=== PATIENT | female | born 1945 | race Caucasian/White ===

== ENCOUNTER → 2020-01-05 10:27 | Outpatient (BNVA) | payer MEDICAID, SELFPAY | PROVIDERS: PCP Nurse Practitioner Family; Referring Provider Licensed Practical Nurse; Visit Provider Psychiatry & Neurology Neurology | DX: G56.02 Carpal tunnel syndrome, left upper limb (principal); M54.2 Cervicalgia | CPT/HCPCS: 95886; 95910 ==

== ENCOUNTER 2020-01-08 12:24 | Outpatient (CLI) | payer MEDICAID, SELFPAY ==
--- NOTE | 2020-01-08 13:00 | CT_ITS ---
WS: [id number] CT CERVICAL SPINE HISTORY: Neck pain TECHNIQUE: Contiguous 2.5 mm axial imaging performed through the entire cervical spine. Sagittal and coronal reformats also performed. All CT scans at [facility] use at least one of these do se optimization techniques: automated exposure control; mA and/or kV adjustment per patient size (inc ludes targeted exams where dose is matched to clinical indication); or iterative reconstruction. DLP: 1677.79 mGycm COMPARISON: 09/27/2018 Straightening of the normal cervical lordosis. C4 anterolisthesis by 2.1 mm. Moderate to severe degen erative disc disease at C5-6 and C6-7. Endplate sclerosis with osteophytes and subchondral cystic carl nges. Craniocervical junction is intact. Lateral masses of C1 and C2 are aligned. C2-C3: Normal. C3-C4: Mild osteophytic ridging and central disc protrusion. No stenosis. C4-C5: Mild osteophytic ridging and facet arthropathy. No stenosis. C5-C6: Mild osteophytic ridging and facet arthropathy. No significant stenosis. C6-C7: Mild osteophytic ridging with slight flattening of the ventral thecal sac. No significant sten osis. C7-T1: Normal. Lung apices are clear. Heterogeneous LEFT thyroid lobe. Suspect there is probably a LEFT thyroid nodu le. CT/CT cervical spin wo con* [id number] IMPRESSION: 1. No significant central or foraminal stenosis. 2. C4 anterolisthesis by 2.1 mm. 3. Advanced degenerative disc disease at C5-6 and C6-7. 4. Similar appearance to the MRI of 11/02/2019.
--- NOTE | 2020-01-08 13:15 | CT_ITS ---
WS: [id number] CT LUMBAR SPINE, noncontrast. HISTORY: Status post lumbar fusion. TECHNIQUE: Contiguous 2.5 mm axial imaging are performed. Sagittal and coronal reformats are submitte d and reviewed. All CT scans at [facility] use at least one of these dose optimization te chniques: automated exposure control; mA and/or kV adjustment per patient size (includes targeted exa ms where dose is matched to clinical indication); or iterative reconstruction. IV contrast: None DLP: 1649.45 mGycm COMPARISON: MRI 11/02/2019 Posterior lumbar fusion at L4-5 with interbody spacer. L4 anterolisthesis by 7.2 mm. Moderate disc sp vanessa narrowing at the L4-5 level is similar to the prior study. No lucency around the hardware. Increa se in lumbar lordosis. Moderate disc space narrowing and desiccation at L2-3. Remote fracture at T12 with 3 mm retropulsion of the posterior superior endplate. L1-2: Normal. L2-3: Moderate diffuse disc bulging with ligamentum flavum hypertrophy and facet arthropathy. There i s at least mild central, subarticular recess and foraminal stenosis. L3-4: Diffuse mild annular disc bulging with ligamentum flavum and facet arthropathy. Mild central an d subarticular recess stenosis. L4-5: Large posterior laminectomy defect with resolution of central stenosis. No significant residual stenosis. Bone grafting surrounding the posterior lateral facet joints and laminectomy defects. Inco mplete fusion. L5-S1: Mild posterior disc bulging no significant stenosis. Visualized retroperitoneum is normal. CT/CT lumbar spine wo con* [id number] IMPRESSION: 1. Prior posterior lumbar fusion at L4-5 with interbody spacer. Large posterio r laminectomy defects and bone grafting are stable with no complications. 2. Stable L4 anterolisthesis by 7.2 mm. 3. Mild central, subarticular recess and foraminal stenosis at L2-3 with mild central and subarticular recess stenosis at L3-4.
== END 2020-01-08 12:25 | disposition home or self-care (01) ==
PROVIDERS: PCP Nurse Practitioner Family; Visit Provider Licensed Practical Nurse
DX: Z98.1 Arthrodesis status (principal); M48.061 Spinal stenosis, lumbar region without neurogenic claudication; M47.892 Other spondylosis, cervical region
CPT/HCPCS: 72125; 72131

== ENCOUNTER 2020-05-01 13:30 | Outpatient (CLI) | payer MEDICAID, SELFPAY ==
--- NOTE | 2020-05-01 13:30 | XR_ITS ---
WS: [id number] XR cervical spine fl/ex [id number] REASON FOR EXAM: cervical pain FINDINGS: Grade 1 spondylolisthesis C4-C5. This is not changed since previous exam of November 02. At C5-6, C6-7 there is loss of the disc space. Flexion extension views were essentially normal and th ere is mild correction of the spondylolisthesis with the flexion extension at the C4-5. XR/XR cervical spine fl/ex [id number] IMPRESSION: Motion is seen at this C4-5 level the spondylolisthesis improves returning to t he neutral position after flexion-extension.
== END 2020-05-01 13:31 | disposition home or self-care (01) ==
LOC: RADWPI 13:34
PROVIDERS: Family Provider Nurse Practitioner Family; PCP Nurse Practitioner Family; Visit Provider Specialist
DX: M43.12 Spondylolisthesis, cervical region (principal)
CPT/HCPCS: 72040

== ENCOUNTER 2020-05-27 09:12 | Day surgery (SDC) | payer MEDICAID, SELFPAY ==
[2020-05-24 07:51] VITALS: BMI 26.6
[2020-05-27 09:33] VITALS: BP 153/92; PULSE 74; RESP 18; TEMP 36.4; O2SAT 94
[2020-05-27] MEDS: sodium chloride 0.9% 1,000 ML 30 ML IV (10:05)
--- NOTE | 2020-05-27 10:40 | W.PM.OPSUD ---
Surgery/Procedure H&P Update DATE OF PROCEDURE: May 27, 2020 DATE H&P PERFORMED: 04/30/20 H&P UPDATE INFORMATION: I have reviewed H&P completed within last 30 days and H&P is in [facility] EMR on date indicated PREOP DIAGNOSIS: Carpal tunnel syndrome PRIMARY INDICATION FOR PROCEDURE: carpal tunnel syndrome PLANNED PROCEDURE: Operation Date: 05/27/20 11:00 Proposed Procedures Open Median Nerve Release at the left wrist
--- NOTE | 2020-05-27 10:57 | P.OP_ITS ---
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 Surgeon: Kory Talavera Estimated blood loss (mL): 4 Complications: None. Post-op Plan: Home per Ambulatory Surgery protocol. 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
[2020-05-27] MEDS: neomycin-poly-bacitracin oint 28 gm 1 APPLIC TOPICAL (11:29)
[2020-05-27 11:59] VITALS: BP 130/67; PULSE 80; RESP 18; TEMP 36.4; O2SAT 94
[2020-05-27 12:18] VITALS: BP 121/70; PULSE 79; RESP 18; O2SAT 92
--- NOTE | 2020-05-27 23:23 | PM.OP ---
Operative Report Date of procedure: May 27, 2020 Pre-op Diagnosis: Median nerve entrapment at the left wrist. Post-op diagnosis: same Procedure Done: Open release of the median nerve at the left wrist. Surgeon: Kory Talavera Anesthesia: MAC Estimated blood loss (mL): 4 IV fluids (mL): 500 Complications: None. Condition: stable Disposition: same day Brief History: The patient is a 75-year-old female with symptomatic, electrodiagnostically confirmed moderately-severe median nerve entrapment at the left wrist. Conservative management failed to provide adequate lasting symptom relief. After review of the diagnostic and treatment options with the risks/potential benefits/rationale for each, she requested to proceed with surgical intervention. Procedure: After routine preoperative evaluation and informed consent were obtained, the patient was taken to the Operating Room and positioned supine on the operating table. Anesthesia personnel monitored the patient, and maintained intravenous sedation. The left upper extremity was extended on an arm board. The proposed skin incision was marked with a sterile skin marker, beginning near the wrist crease and extending distally along a palmar crease to the base of the thumb. The left upper extremity was scrubbed with Betadine and prepped with DuraPrep from the fingertips to the axilla. A sterile stockinette was placed over the left upper extremity. The patient was draped with sterile towels and drapes. An opening was fashioned in the sterile stockinette over the palmar aspect of the left hand. Ioban surgical barrier was applied. The proposed incision site was infiltrated with 1% Xylocaine with Epinephrine. A skin incision was made with a sharp knife and carried down into the subcutaneous tissues. The thickened transverse carpal ligament was identified and divided over the course of the median nerve in the palm. The nerve was directly visualized as the ligament was divided. Decompression was extended distally until the palmar fat pad was encountered. Proximally, the decompression was extended above the wrist crease utilizing fine Metzenbaum scissors. Decompression was verified to be adequate for a distance of greater than 2 centimeters proximal to the wrist crease. Mild diffuse epineural adhesions were identified, and addressed with limited epineurolysis. At the completion of the decompression, there was no evidence of residual impingement or tethering of the median nerve at the surgical site. The wound was then copiously irrigated with sterile saline and antibiotic irrigation. Hemostasis was ensured with the bipolar electrocautery. Wound closure was performed as a single layer utilizing 4-0 Nylon in a simple interrupted fashion. Antibiotic ointment was placed along the incision line. A bulky hand dressing was fashioned utilizing Kerlix fluffs, a Kerlix wrap, and an FLORA/elastic bandage. The patient was transferred onto the transport cart and returned to the Ambulatory Surgery Area for discharge home, as per the Ambulatory Surgery protocol. The patient tolerated the procedure well. All sponge, needle and instrument counts were correct at the completion of the procedure.
== END 2020-05-27 12:30 | disposition home or self-care (01) ==
PROVIDERS: Family Provider Nurse Practitioner Family; PCP Nurse Practitioner Family; Visit Provider Specialist
PROC: (CPT 64721; principal; 2020-05-27 10:50)
DX: G56.02 Carpal tunnel syndrome, left upper limb (principal); E78.5 Hyperlipidemia, unspecified; M19.90 Unspecified osteoarthritis, unspecified site; Z87.11 Personal history of peptic ulcer disease
CPT/HCPCS: 64721; 12345; 96365; J0690; J2704; J3010; J3490; J7030

== ENCOUNTER → 2020-07-08 08:06 | Outpatient (BNVA) | payer MEDICAID, SELFPAY | PROVIDERS: Family Provider Nurse Practitioner Family; PCP Nurse Practitioner Family; Visit Provider Licensed Practical Nurse | DX: Z98.890 Other specified postprocedural states (principal); M50.020 Cervical disc disorder with myelopathy, mid-cervical region, unspecified level | CPT/HCPCS: 99024 ==

== ENCOUNTER 2020-11-18 09:12 | Outpatient (CLI) | payer MEDICAID, SELFPAY ==
--- NOTE | 2020-11-18 09:19 | MM_ITS ---
WS: [id number] BILATERAL DIGITAL SCREENING MAMMOGRAPHY WITH CAD CLINICAL INFORMATION: SCREENING HISTORY: Screening mammogram. No current complaints. COMPARISON: TECHNIQUE: Bilateral CC and MLO views. FINDINGS: The breasts are composed of heterogeneous fibroglandular density tissue, which can limit the detectio n of small underlying mass lesions. No suspicious mass, asymmetry, calcifications, or architectural d istortion. No evidence of malignancy. MM/[place] [id number] IMPRESSION: BI-RADS: 1-Negative FOLLOW UP: 1 Year Follow-up Recommend return to annual screening mammography.
== END 2020-11-18 09:13 | disposition home or self-care (01) ==
PROVIDERS: Family Provider Nurse Practitioner Family; PCP Nurse Practitioner Family; Visit Provider Nurse Practitioner Family
DX: Z12.31 Encounter for screening mammogram for malignant neoplasm of breast (principal)
CPT/HCPCS: 77067

== ENCOUNTER 2020-11-18 10:14 | Outpatient (CLI) | payer MEDICAID, SELFPAY ==
--- NOTE | 2020-11-18 10:18 | XR_ITS ---
WS: [id number] CERVICAL SPINE TECHNIQUE: 3 views of the cervical spine CLINICAL INFORMATION: CERVICALGIA COMPARISON: None. FINDINGS: Moderate spondylitic changes cervical spine. Osteopenia. Slight anterolisthesis C4 on C5. Disc space narrowing worse at C5-C6 and C6-C7. Normal prevertebral soft tissues. Normal C1-2 articulation. Moder ate facet arthropathy in the mid cervical spine. Normal dens. XR/XR cervical spine 4-5V [id number] IMPRESSION: Moderate spondylitic changes with disc space narrowing worse at C5-C6 and C6-C7 .
== END 2020-11-18 10:15 | disposition home or self-care (01) ==
LOC: RADWPI 10:16
PROVIDERS: PCP Nurse Practitioner Family; Visit Provider Nurse Practitioner Family
DX: M54.2 Cervicalgia (principal)
CPT/HCPCS: 72050

== ENCOUNTER → 2020-12-12 13:12 | Outpatient (BNVA) | payer MEDICAID, SELFPAY | PROVIDERS: PCP Nurse Practitioner Family; Referring Provider Nurse Practitioner Family; Visit Provider Orthopaedic Surgery | DX: M54.2 Cervicalgia (principal) | CPT/HCPCS: 72050 ==

== ENCOUNTER 2021-01-24 08:12 | Outpatient (CLI) | payer MEDICAID, SELFPAY ==
--- NOTE | 2021-01-24 08:33 | MR_ITS ---
WS: [id number] MRI CERVICAL SPINE NONCONTRAST HISTORY: M48.02 - Spinal stenosis, cervical region COMPARISON: 11/02/2019 Technique: Multiplanar, multisequence noncontrast imaging of the cervical spine. Very slight straightening of the normal cervical lordosis. 2 mm anterolisthesis of C4. Moderate to se andrew degenerative disc disease and osteophytosis most significant at C4-5, C5-6 and C6-7. Very mild p rogression since the prior MRI. No fractures or marrow edema. The reactive marrow edema seen in 2019 within C6 and C7 has resolved. Craniocervical junction, C1 and C2 relationship, odontoid process and soft tissues are normal. C2-C3: Normal. C3-C4: Mild annular disc bulging and osteophytic ridging with a central disc protrusion. No stenosis. C4-C5: Diffuse moderate annular disc bulging and osteophytic ridging. There is a focal central disc p rotrusion which is slightly more prominent as compared to the prior study. Mild central and bilateral foraminal stenosis. C5-C6: Diffuse annular disc bulging and osteophytic ridging. Very minimal narrowing of the central ca nal and foramen. C6-C7: Moderate annular disc bulging and osteophytic ridging. Small central disc protrusion is simila r to the prior study. Disc osteophyte disease extends into the foramen bilaterally. Mild central and bilateral foraminal stenosis. C7-T1: Normal. Paraspinal soft tissue are normal. MR/MR cervical spin wo con* [id number] IMPRESSION: 1. Very minimal progression of degenerative disc disease and osteophytosis sin ce 11/02/2019. 2. Mild central and foraminal stenosis at C4-5, C5-6 and C6-7. 3. Moderately severe degenerative disc disease most significant at C6-7 and to a lesser extent C4-5 and C5-6. 4. Small focal disc protrusions at C3-4, C4-5 and C6-7.
== END 2021-01-24 08:13 | disposition home or self-care (01) ==
LOC: RADWPI 08:13
PROVIDERS: PCP Nurse Practitioner Family; Visit Provider Orthopaedic Surgery
DX: M48.02 Spinal stenosis, cervical region (principal); G99.2 Myelopathy in diseases classified elsewhere; M50.21 Other cervical disc displacement, high cervical region; M50.30 Other cervical disc degeneration, unspecified cervical region
CPT/HCPCS: 72141

== ENCOUNTER → 2021-02-25 08:30 | Outpatient (BNVA) | payer MEDICAID, SELFPAY | PROVIDERS: PCP Nurse Practitioner Family; Visit Provider Anesthesiology Pain Medicine | DX: M43.16 Spondylolisthesis, lumbar region (principal); M43.12 Spondylolisthesis, cervical region; M50.90 Cervical disc disorder, unspecified, unspecified cervical region; R42 Dizziness and giddiness; M96.1 Postlaminectomy syndrome, not elsewhere classified; Z98.1 Arthrodesis status | CPT/HCPCS: 99205 ==

== ENCOUNTER → 2021-03-05 09:02 | Outpatient (BNVA) | payer MEDICAID, SELFPAY | PROVIDERS: PCP Nurse Practitioner Family; Visit Provider Anesthesiology Pain Medicine | DX: M48.02 Spinal stenosis, cervical region (principal); G99.2 Myelopathy in diseases classified elsewhere | CPT/HCPCS: 62321; J1100 ==

== ENCOUNTER → 2021-03-19 09:28 | Outpatient (BNVA) | payer MEDICAID, SELFPAY | PROVIDERS: PCP Nurse Practitioner Family; Visit Provider Anesthesiology Pain Medicine | DX: M43.12 Spondylolisthesis, cervical region (principal); M50.90 Cervical disc disorder, unspecified, unspecified cervical region; M43.16 Spondylolisthesis, lumbar region; M96.1 Postlaminectomy syndrome, not elsewhere classified; R42 Dizziness and giddiness; Z98.1 Arthrodesis status | CPT/HCPCS: 99214 ==

== ENCOUNTER → 2021-03-26 13:35 | Outpatient (BNVA) | payer MEDICAID, SELFPAY | PROVIDERS: PCP Nurse Practitioner Family; Visit Provider Anesthesiology Pain Medicine | DX: M47.812 Spondylosis without myelopathy or radiculopathy, cervical region (principal); Z79.891 Long term (current) use of opiate analgesic | CPT/HCPCS: 64490; 64491; 64492; J3490 ==

== ENCOUNTER → 2021-04-10 09:24 | Outpatient (BNVA) | payer MEDICAID, SELFPAY | PROVIDERS: PCP Nurse Practitioner Family; Visit Provider Anesthesiology Pain Medicine | DX: M43.12 Spondylolisthesis, cervical region (principal); M50.90 Cervical disc disorder, unspecified, unspecified cervical region; M43.16 Spondylolisthesis, lumbar region; M96.1 Postlaminectomy syndrome, not elsewhere classified; R42 Dizziness and giddiness; Z98.1 Arthrodesis status | CPT/HCPCS: 99214 ==

== ENCOUNTER 2021-05-23 10:02 | Outpatient (CLI) | payer MEDICAID, SELFPAY ==
--- NOTE | 2021-05-23 10:17 | XR_ITS ---
WS: [id number] KNEE RIGHT TECHNIQUE: 2 views of the right knee CLINICAL INFORMATION: PAIN IN RIGHT KNEE COMPARISON: None. FINDINGS: Normal anatomic alignment. Moderate suprapatellar effusion. No acute fractures. Normal patella. XR/XR knee RT 1-2V [id number] IMPRESSION: Moderate suprapatellar effusion. No acute fractures. Kellgren-Kei Classification: grade 1 (doubtful): doubtful joint space narr owing and possible osteophytic lipping
--- NOTE | 2021-05-23 10:17 | XR_ITS ---
WS: [id number] PROCEDURE: XR chest 2V* [id number] CLINICAL INFORMATION: COUGH COMPARISON: None. FINDINGS: Heart: Normal cardiac silhouette. Tortuous thoracic aorta. Lungs: Lungs are clear. No consolidation or pleural fluid. Moderate chronic emphysematous changes. No acute pulmonary infiltrates. No focal pneumonia or pleural fluid. Bones: Thoracic kyphosis with chronic appearing compression deformities at the thoracolumbar junction . Cholecystectomy clips. XR/XR chest 2V* [id number] IMPRESSION: 1. No acute pulmonary infiltrates. No focal pneumonia or pleural fluid. 2. Thoracic kyphosis with chronic appearing compression deformities at the tho racolumbar junction.
--- NOTE | 2021-05-23 10:17 | CT_ITS ---
WS: [id number] CT HEAD TECHNIQUE: Noncontrast CT of the head obtained from the skullbase to the vertex. CLINICAL INFORMATION: DIZZINESS AND GIDDINESS COMPARISON: None. DLP: 992.[address] scans at [facility] use at least one of these dose optimization techniques: automat ed exposure control; mA and/or kV adjustment per patient size (includes targeted exams where dose is matched to clinical indication); or iterative reconstruction. FINDINGS: No evidence of intracranial hemorrhage or mass effect. Ventricular system and basal cisterns are kyle nt. Mild small vessel changes with mild parenchymal volume loss. No extra-axial fluid collections. No evidence of mass or mass effect. Normal agarwal-white differentiation. Paranasal sinuses and mastoid air cells are well aerated. .Normal visualized soft tissues. CT/CT head wo con* [id number] IMPRESSION: 1. No evidence of intracranial hemorrhage or mass effect. 2. Minimal small vessel changes with mild parenchymal volume loss. 3. No acute intracranial findings.
== END 2021-05-23 10:03 | disposition home or self-care (01) ==
LOC: RADWPI 10:04
PROVIDERS: PCP Nurse Practitioner Family; Visit Provider Nurse Practitioner Family
DX: R42 Dizziness and giddiness (principal); M25.561 Pain in right knee; R05 Cough; M40.294 Other kyphosis, thoracic region; M25.461 Effusion, right knee
CPT/HCPCS: 70450; 71046; 73560

== ENCOUNTER 2021-05-24 15:37 | Inpatient (IN) | payer MEDICAID, SELFPAY ==
[2021-05-24] VITALS (24 sets, daily range): BP systolic 90–114; BP diastolic 54–98; PULSE 87–102; RESP 7–26; TEMP 36.6; O2SAT 86–98; BMI 26.3
--- NOTE | 2021-05-24 16:57 | XRR_ITS ---
PROCEDURE INFORMATION: Exam: XR Chest Exam date and time: 05/24/2021 4:57 PM Age: 76 years old Clinical indication: Cough; Additional info: Dyspnea/cough TECHNIQUE: Imaging protocol: XR of the chest. Views: 1 view. COMPARISON: CR XR chest 2V* [id number] 05/23/2021 10:32 AM FINDINGS: Lungs: Unremarkable. No consolidation. Pleural spaces: Unremarkable. No pleural effusion. No pneumothorax. Heart/Mediastinum: Unremarkable. No cardiomegaly. Bones/joints: No acute osseous abnormalities. Organs: Cholecystectomy clips. XR/XR chest 1V portable [id number] IMPRESSION: No acute findings.
--- NOTE | 2021-05-24 16:58 | ECG_ITS ---
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 Measurements Intervals [place] Rate: 98 P: 19 MS: 146 QRS: -18 QRSD: 98 T: 96 QT: 342 QTc: 437 Interpretive Statements SINUS RHYTHM NONSPECIFIC ST & T-WAVE ABNORMALITY Compared to ECG 09/27/2018 09:19:28 No significant changes Electronically Signed On 05-25-2021 17:08:26 CDT by Diego Lambert M.D. [email or web address]
--- NOTE | 2021-05-24 17:14 | W.ED.DIZZY ---
HPI - Dizziness General: Chief Complaint: Dizziness Stated Complaint: NEAR SYNCOPE, CLAMMY, COUGH Time Seen by Provider: 05/24/21 16:51 History of Present Illness: HPI Narrative: 76-year-old female presents emergency room with complaint of dizziness cough and diarrhea. Patient began having symptoms about 7 to 10 days ago. She had a near vasovagal episode with a coughing fit today at home. She has some chest discomfort but slowly associated with coughing. Cough is been nonproductive. She is not had Covid that she knows of nor has she been vaccinated. MD elicited complaint: lightheadedness Onset (ago): day(s) (7-10) Timing: gradual onset Severity: mild Description: lightheadedness Exacerbating factors: other (Coughing) Relieving factors: remaining still and lying down Associated symptoms: Reports chest pain, cough, fevers/chills, headache(s), malaise, nausea, nasal congestion and weakness; Denies abnormal vaginal bleeding, change in hearing, chills, diaphoresis, ear discharge, ear pressure, palpitations, rash, short of breath, syncope, tinnitus or vomiting Review of Systems Const: Reports: malaise; Denies: chills or diaphoresis ENMT: Reports: nasal congestion; Denies: ear discharge, change in hearing or tinnitus Card: Reports: chest pain; Denies: palpitations or syncope Resp: Denies: dyspnea, productive cough or non-productive cough GI: Reports: nausea; Denies: vomiting : Denies: flank pain, difficulty voiding, dysuria, urinary frequency or urinary urgency Skin/Breast: Denies: rash or pruritus Neuro: Reports: headache(s) [facility] PFSH: Medical History (Updated 05/25/21 @ 06:43 by Myra Patel MD) Cervical disc disorder with myelopathy of mid-cervical region Diabetes mellitus, type II Hyperlipidemia Hypertension Lumbar post-laminectomy syndrome Osteoarthritis Spondylolisthesis at L4-L5 level Spondylolisthesis, cervical region Stenosis of cervical spine with myelopathy Surgical History (Updated 05/24/21 @ 20:08 by Myra Patel MD) History of carpal tunnel surgery of left wrist (05/27/20) Dr. Yanick Talavera: Open release of the median nerve at the left wrist History of cholecystectomy History of hysterectomy Status post laminectomy with spinal fusion (~2014) Dr. Sohail Hughes [facility] L4-L5 fusion/fixation Family History Father Diabetes Mother Cancer ovarian Social History (Updated 05/24/21 @ 20:10 by Myra Patel MD) Smoking and tobacco status: never smoked Second hand smoke exposure: No Alcohol intake: never Household members: none Marital status: / Current occupational status: disabled Physical Exam Const: COMMON NORMALS: no acute distress GENERAL APPEARANCE: cooperative and comfortable ORIENTATION/CONSCIOUSNESS: Yes awake, Yes oriented to person, Yes oriented to place and Yes oriented to time HENMT: COMMON NORMALS: normocephalic, atraumatic, hearing grossly normal bilaterally and external ears normal HEAD & SCALP: normocephalic and atraumatic EXTERNAL EAR: Yes external ears normal Neck/C-Spine: COMMON NORMALS: no JVD Resp: COMMON NORMALS: normal respiratory effort, No retractions, No use of accessory muscles and clear to auscultation bilaterally AUSCULTATION: clear to auscultation bilaterally Cardio: COMMON NORMALS: no JVD, regular rate, regular rhythm and No murmurs present (Cardio) RATE: regular rate RHYTHM: regular rhythm GI: COMMON NORMALS: Soft to palpation and No hepatosplenomegaly present AUSCULTATION: Yes normoactive bowel sounds PALPATION: Yes Soft to palpation, No Tenderness to palpation present (GI), No Guarding due to palpation present (GI) and Yes No hepatosplenomegaly present Extremity: COMMON NORMALS: normal to inspection, capillary refill normal, no clubbing, cyanosis or edema, no calf tenderness and no pedal edema Neuro: SENSORIUM/ORIENTATION: Yes oriented to person, Yes oriented to place and Yes oriented to time Skin: COMMON NORMALS: no rashes or lesions noted GENERAL SKIN EXAM: no rashes or lesions noted Course Vital Signs: Vital signs: Vital Signs Temperature 98.1 F 05/26/21 04:00 Pulse Rate 73 05/26/21 04:00 Respiratory Rate 16 05/26/21 04:00 Blood Pressure 123/68 05/26/21 04:00 Pulse Oximetry 94 05/26/21 04:00 MDM - Dizziness MDM Narrative: Medical decision making narrative: Covid positive patient with frail health and mild acute kidney injury. She is not hypoxic but she did have a syncopal episode due to her cough I think she would be best served given her age and overall frail health by being admitted for IV fluids observation for advancement of disease monoclonal antibody infusion supportive cares. If she has any worsening of symptoms she may need significant assistance discussed Dr. Patel. Were both in agreement. Orders written Lab Data: Labs: Lab Results 05/24/21 05/24/21 05/24/21 Range/Units 17:19 17:19 17:19 WBC 6.0 (4.0-10.0) 10^3/ uL RBC 5.20 (4.1-5.3) 10^6/u L Hgb 14.4 (11.5-15.3) g/dL Hct 44.4 (37.0-47.0) % MCV 85.4 (81-99) fL MCH 27.7 L (28.0-34.0) pg MCHC 32.4 (30.0-36.0) g/dL RDW 13.2 (12.1-15.1) % Plt Count 216 (130-400) 10^3/c mm MPV 10.5 H (7.4-10.4) fL Neut % (Auto) 74.2 % Lymph % (Auto) 17.8 % Larue % (Auto) 7.2 % Eos % (Auto) 0.0 % Baso % (Auto) 0.3 % Neut # (Auto) 4.45 (1.8-7.7) 10^3/u L Lymph # (Auto) 1.1 (0.8-4.8) 10^3/u L Larue # (Auto) 0.4 (0.2-0.9) 10^3/u L Eos # (Auto) 0.0 (0.0-0.8) 10^3/u L Baso # (Auto) 0.0 (0.0-0.1) 10^3/u L Nucleated RBC % (a uto) 0 % Nucleated RBCs # 0.0 /100WBC PT (12.1-14.9) SECO NDS INR (0.8-1.2) APTT (23.9-36.7) SECO NDS Fibrinogen (174-498) mg/dL D-Dimer (0-0.59) ug/mIFE U Specimen Type Sample Site ABG pH (7.35-7.45) ABG pCO2 (35-45) mmHg ABG pO2 (80.0-100.0) mmH g ABG HCO3 (22-26) mmol/L ABG O2 Saturation ABG Base Excess (-2.0-2.0) mmol/ L Luis Manuel Test A-a O2 Gradient (5-10) mmHg Hematocrit (37-47) % Hgb O2 Saturation (95-100) % Carboxyhemoglobin (0.4-20.1) %THgb Methemoglobin (0.4-1.5) % Total Hemoglobin (12-16) g/dL Ionized Calcium (1.1-1.4) mmol/L O2 Delivery Device FiO2 % Web Application Dev Specialist ID Sodium 135 L (136-145) mmol/L Potassium 3.5 (3.5-5.1) mmol/L Chloride 94 L (98-107) mmol/L Carbon Dioxide 23 (22-29) mmol/L Anion Gap 21.5 H (5-19) BUN 28 H (8-23) mg/dL Creatinine 1.5 H (0.5-0.9) mg/dL GFR Calculation Not Reportable Glucose 145 H (65-115) mg/dL Calculated Osmolal ity 288 (285-295) mOsm/k g Lactate (0.5-2.2) mmol/L Calcium 9.2 (8.5-10.5) mg/dL Phosphorus (2.5-4.5) mg/dL Magnesium (1.7-2.3) mg/dL Ferritin (15-150) ng/mL Total Bilirubin 0.3 (0.15-1.2) mg/dL AST 74 H (0-32) U/L ALT 64 H (0-33) U/L Alkaline Phosphata se 71 (35-105) IU/L Lactate Dehydrogen ase (135-214) U/L Creatine Kinase 288 H (26-192) U/L Troponin T Baselin e 9 (0-10) ng/L Troponin T 120 Min [place] Delta Troponin T Troponin T Hi Sens 6Hr (0-10) ng/L Troponin T Hi Sens 6Hr Delta (0-12) ng/L C-Reactive Protein (0.0-4.9) mg/L NT-Pro-B Natriuret Pep (0-125) pg/mL Total Protein 7.6 (6.6-8.7) g/dL Albumin 4.8 (3.5-5.2) g/dL Globulin 2.8 (1.3-4.6) g/dL Lipase 28 (13-60) U/L Procalcitonin (0-0.5) ng/mL Urine Color (Yellow) Urine Appearance (CLEAR) Urine pH (5-7) Ur Specific Gravit y (1.005-1.030) Urine Protein (Negative) Urine Glucose (UA) (Normal) Urine Ketones (Negative) Urine Blood (Negative) Urine Nitrate (Negative) Urine Bilirubin (Negative) Urine Urobilinogen (Negative) mg/dL Ur Leukocyte Perla ase (Negative) Urine RBC (0-2) /hpf Urine WBC (0-5) /hpf Ur Squamous Epith Cells (0-5) /hpf Amorphous Sediment Urine Bacteria (NONE) /hpf Hyaline Casts /lpf SARS-CoV-2 Ag (Rap id) (Negative) 05/24/21 05/24/21 05/24/21 Range/Units 17:48 17:49 18:16 WBC (4.0-10.0) 10^3/ uL RBC (4.1-5.3) 10^6/u L Hgb (11.5-15.3) g/dL Hct (37.0-47.0) % MCV (81-99) fL MCH (28.0-34.0) pg MCHC (30.0-36.0) g/dL RDW (12.1-15.1) % Plt Count (130-400) 10^3/c mm MPV (7.4-10.4) fL Neut % (Auto) % Lymph % (Auto) % Larue % (Auto) % Eos % (Auto) % Baso % (Auto) % Neut # (Auto) (1.8-7.7) 10^3/u L Lymph # (Auto) (0.8-4.8) 10^3/u L Larue # (Auto) (0.2-0.9) 10^3/u L Eos # (Auto) (0.0-0.8) 10^3/u L Baso # (Auto) (0.0-0.1) 10^3/u L Nucleated RBC % (a uto) % Nucleated RBCs # /100WBC PT (12.1-14.9) SECO NDS INR (0.8-1.2) APTT (23.9-36.7) SECO NDS Fibrinogen (174-498) mg/dL D-Dimer (0-0.59) ug/mIFE U Specimen Type Arterial Sample Site Radial, left ABG pH 7.41 (7.35-7.45) ABG pCO2 33.3 L (35-45) mmHg ABG pO2 56.6 L (80.0-100.0) mmH g ABG HCO3 21.3 L (22-26) mmol/L ABG O2 Saturation 90.7 ABG Base Excess -2.5 L (-2.0-2.0) mmol/ L Luis Manuel Test Pos A-a O2 Gradient 6.6 (5-10) mmHg Hematocrit 45.5 (37-47) % Hgb O2 Saturation 89.3 L (95-100) % Carboxyhemoglobin 0.8 (0.4-20.1) %THgb Methemoglobin 0.7 (0.4-1.5) % Total Hemoglobin 14.8 (12-16) g/dL Ionized Calcium 1.2 (1.1-1.4) mmol/L O2 Delivery Device Room air FiO2 21.0 % Web Application Dev Specialist ID Amh Sodium 137.0 (136-145) mmol/L Potassium 3.5 (3.5-5.1) mmol/L Chloride (98-107) mmol/L Carbon Dioxide (22-29) mmol/L Anion Gap (5-19) BUN (8-23) mg/dL Creatinine (0.5-0.9) mg/dL GFR Calculation Glucose 138.0 H (65-115) mg/dL Calculated Osmolal ity (285-295) mOsm/k g Lactate (0.5-2.2) mmol/L Calcium (8.5-10.5) mg/dL Phosphorus (2.5-4.5) mg/dL Magnesium (1.7-2.3) mg/dL Ferritin (15-150) ng/mL Total Bilirubin (0.15-1.2) mg/dL AST (0-32) U/L ALT (0-33) U/L Alkaline Phosphata se (35-105) IU/L Lactate Dehydrogen ase (135-214) U/L Creatine Kinase (26-192) U/L Troponin T Baselin e (0-10) ng/L Troponin T 120 Min [place] Delta Troponin T Troponin T Hi Sens 6Hr (0-10) ng/L Troponin T Hi Sens 6Hr Delta (0-12) ng/L C-Reactive Protein (0.0-4.9) mg/L NT-Pro-B Natriuret Pep (0-125) pg/mL Total Protein (6.6-8.7) g/dL Albumin (3.5-5.2) g/dL Globulin (1.3-4.6) g/dL Lipase (13-60) U/L Procalcitonin (0-0.5) ng/mL Urine Color Yellow (Yellow) Urine Appearance Sl hazy (CLEAR) Urine pH 5 (5-7) Ur Specific Gravit y 1.025 (1.005-1.030) Urine Protein Trace (Negative) Urine Glucose (UA) Norm (Normal) Urine Ketones 1+ H (Negative) Urine Blood Neg (Negative) Urine Nitrate Positive H (Negative) Urine Bilirubin 1+ H (Negative) Urine Urobilinogen 1 H (Negative) mg/dL Ur Leukocyte Perla ase Negative (Negative) Urine RBC 0-4 H (0-2) /hpf Urine WBC 10-15 H (0-5) /hpf Ur Squamous Epith Cells 15-25 H (0-5) /hpf Amorphous Sediment Not Reportable Urine Bacteria 3+ H (NONE) /hpf Hyaline Casts 10-15 H /lpf SARS-CoV-2 Ag (Rap id) Positive H (Negative) 05/24/21 05/24/21 05/25/21 Range/Units 19:45 20:12 01:15 WBC (4.0-10.0) 10^3/ uL RBC (4.1-5.3) 10^6/u L Hgb (11.5-15.3) g/dL Hct (37.0-47.0) % MCV (81-99) fL MCH (28.0-34.0) pg MCHC (30.0-36.0) g/dL RDW (12.1-15.1) % Plt Count (130-400) 10^3/c mm MPV (7.4-10.4) fL Neut % (Auto) % Lymph % (Auto) % Larue % (Auto) % Eos % (Auto) % Baso % (Auto) % Neut # (Auto) (1.8-7.7) 10^3/u L Lymph # (Auto) (0.8-4.8) 10^3/u L Larue # (Auto) (0.2-0.9) 10^3/u L Eos # (Auto) (0.0-0.8) 10^3/u L Baso # (Auto) (0.0-0.1) 10^3/u L Nucleated RBC % (a uto) % Nucleated RBCs # /100WBC PT (12.1-14.9) SECO NDS INR (0.8-1.2) APTT (23.9-36.7) SECO NDS Fibrinogen (174-498) mg/dL D-Dimer (0-0.59) ug/mIFE U Specimen Type Sample Site ABG pH (7.35-7.45) ABG pCO2 (35-45) mmHg ABG pO2 (80.0-100.0) mmH g ABG HCO3 (22-26) mmol/L ABG O2 Saturation ABG Base Excess (-2.0-2.0) mmol/ L Luis Manuel Test A-a O2 Gradient (5-10) mmHg Hematocrit (37-47) % Hgb O2 Saturation (95-100) % Carboxyhemoglobin (0.4-20.1) %THgb Methemoglobin (0.4-1.5) % Total Hemoglobin (12-16) g/dL Ionized Calcium (1.1-1.4) mmol/L O2 Delivery Device FiO2 % Web Application Dev Specialist ID Sodium (136-145) mmol/L Potassium (3.5-5.1) mmol/L Chloride (98-107) mmol/L Carbon Dioxide (22-29) mmol/L Anion Gap (5-19) BUN (8-23) mg/dL Creatinine (0.5-0.9) mg/dL GFR Calculation Glucose (65-115) mg/dL Calculated Osmolal ity (285-295) mOsm/k g Lactate (0.5-2.2) mmol/L Calcium (8.5-10.5) mg/dL Phosphorus (2.5-4.5) mg/dL Magnesium (1.7-2.3) mg/dL Ferritin (15-150) ng/mL Total Bilirubin (0.15-1.2) mg/dL AST (0-32) U/L ALT (0-33) U/L Alkaline Phosphata se (35-105) IU/L Lactate Dehydrogen ase (135-214) U/L Creatine Kinase (26-192) U/L Troponin T Baselin e (0-10) ng/L Troponin T 120 Min [place] Cancelled 7.44 Delta Troponin T Cancelled -1.56 L Troponin T Hi Sens 6Hr 9.01 (0-10) ng/L Troponin T Hi Sens 6Hr Delta 0.01 (0-12) ng/L C-Reactive Protein (0.0-4.9) mg/L NT-Pro-B Natriuret Pep (0-125) pg/mL Total Protein (6.6-8.7) g/dL Albumin (3.5-5.2) g/dL Globulin (1.3-4.6) g/dL Lipase (13-60) U/L Procalcitonin (0-0.5) ng/mL Urine Color (Yellow) Urine Appearance (CLEAR) Urine pH (5-7) Ur Specific Gravit y (1.005-1.030) Urine Protein (Negative) Urine Glucose (UA) (Normal) Urine Ketones (Negative) Urine Blood (Negative) Urine Nitrate (Negative) Urine Bilirubin (Negative) Urine Urobilinogen (Negative) mg/dL Ur Leukocyte Perla ase (Negative) Urine RBC (0-2) /hpf Urine WBC (0-5) /hpf Ur Squamous Epith Cells (0-5) /hpf Amorphous Sediment Urine Bacteria (NONE) /hpf Hyaline Casts /lpf SARS-CoV-2 Ag (Rap id) (Negative) 05/25/21 05/25/21 05/25/21 Range/Units 06:00 06:00 06:00 WBC 5.8 (4.0-10.0) 10^3/ uL RBC 4.95 (4.1-5.3) 10^6/u L Hgb 13.8 (11.5-15.3) g/dL Hct 42.6 (37.0-47.0) % MCV 86.1 (81-99) fL MCH 27.9 L (28.0-34.0) pg MCHC 32.4 (30.0-36.0) g/dL RDW 13.2 (12.1-15.1) % Plt Count 179 (130-400) 10^3/c mm MPV 10.3 (7.4-10.4) fL Neut % (Auto) 65.1 % Lymph % (Auto) 28.2 % Larue % (Auto) 6.1 % Eos % (Auto) 0.0 % Baso % (Auto) 0.3 % Neut # (Auto) 3.75 (1.8-7.7) 10^3/u L Lymph # (Auto) 1.6 (0.8-4.8) 10^3/u L Larue # (Auto) 0.4 (0.2-0.9) 10^3/u L Eos # (Auto) 0.0 (0.0-0.8) 10^3/u L Baso # (Auto) 0.0 (0.0-0.1) 10^3/u L Nucleated RBC % (a uto) 0 % Nucleated RBCs # 0.0 /100WBC PT 13.70 (12.1-14.9) SECO NDS INR 1.02 (0.8-1.2) APTT 34.9 (23.9-36.7) SECO NDS Fibrinogen 392 (174-498) mg/dL D-Dimer 0.32 (0-0.59) ug/mIFE U Specimen Type Sample Site ABG pH (7.35-7.45) ABG pCO2 (35-45) mmHg ABG pO2 (80.0-100.0) mmH g ABG HCO3 (22-26) mmol/L ABG O2 Saturation ABG Base Excess (-2.0-2.0) mmol/ L Luis Manuel Test A-a O2 Gradient (5-10) mmHg Hematocrit (37-47) % Hgb O2 Saturation (95-100) % Carboxyhemoglobin (0.4-20.1) %THgb Methemoglobin (0.4-1.5) % Total Hemoglobin (12-16) g/dL Ionized Calcium (1.1-1.4) mmol/L O2 Delivery Device FiO2 % Web Application Dev Specialist ID Sodium 137 (136-145) mmol/L Potassium 3.2 L (3.5-5.1) mmol/L Chloride 97 L (98-107) mmol/L Carbon Dioxide 24 (22-29) mmol/L Anion Gap 19.2 H (5-19) BUN 30 H (8-23) mg/dL Creatinine 1.1 H (0.5-0.9) mg/dL GFR Calculation Not Reportable Glucose 96 (65-115) mg/dL Calculated Osmolal ity 290 (285-295) mOsm/k g Lactate (0.5-2.2) mmol/L Calcium 8.8 (8.5-10.5) mg/dL Phosphorus (2.5-4.5) mg/dL Magnesium (1.7-2.3) mg/dL Ferritin (15-150) ng/mL Total Bilirubin (0.15-1.2) mg/dL AST (0-32) U/L ALT (0-33) U/L Alkaline Phosphata se (35-105) IU/L Lactate Dehydrogen ase (135-214) U/L Creatine Kinase (26-192) U/L Troponin T Baselin e (0-10) ng/L Troponin T 120 Min [place] Delta Troponin T Troponin T Hi Sens 6Hr (0-10) ng/L Troponin T Hi Sens 6Hr Delta (0-12) ng/L C-Reactive Protein (0.0-4.9) mg/L NT-Pro-B Natriuret Pep (0-125) pg/mL Total Protein (6.6-8.7) g/dL Albumin (3.5-5.2) g/dL Globulin (1.3-4.6) g/dL Lipase (13-60) U/L Procalcitonin (0-0.5) ng/mL Urine Color (Yellow) Urine Appearance (CLEAR) Urine pH (5-7) Ur Specific Gravit y (1.005-1.030) Urine Protein (Negative) Urine Glucose (UA) (Normal) Urine Ketones (Negative) Urine Blood (Negative) Urine Nitrate (Negative) Urine Bilirubin (Negative) Urine Urobilinogen (Negative) mg/dL Ur Leukocyte Perla ase (Negative) Urine RBC (0-2) /hpf Urine WBC (0-5) /hpf Ur Squamous Epith Cells (0-5) /hpf Amorphous Sediment Urine Bacteria (NONE) /hpf Hyaline Casts /lpf SARS-CoV-2 Ag (Rap id) (Negative) 05/25/21 05/25/21 Range/Units 06:00 07:50 WBC (4.0-10.0) 10^3/ uL RBC (4.1-5.3) 10^6/u L Hgb (11.5-15.3) g/dL Hct (37.0-47.0) % MCV (81-99) fL MCH (28.0-34.0) pg MCHC (30.0-36.0) g/dL RDW (12.1-15.1) % Plt Count (130-400) 10^3/c mm MPV (7.4-10.4) fL Neut % (Auto) % Lymph % (Auto) % Larue % (Auto) % Eos % (Auto) % Baso % (Auto) % Neut # (Auto) (1.8-7.7) 10^3/u L Lymph # (Auto) (0.8-4.8) 10^3/u L Larue # (Auto) (0.2-0.9) 10^3/u L Eos # (Auto) (0.0-0.8) 10^3/u L Baso # (Auto) (0.0-0.1) 10^3/u L Nucleated RBC % (a uto) % Nucleated RBCs # /100WBC PT (12.1-14.9) SECO NDS INR (0.8-1.2) APTT (23.9-36.7) SECO NDS Fibrinogen (174-498) mg/dL D-Dimer (0-0.59) ug/mIFE U Specimen Type Sample Site ABG pH (7.35-7.45) ABG pCO2 (35-45) mmHg ABG pO2 (80.0-100.0) mmH g ABG HCO3 (22-26) mmol/L ABG O2 Saturation ABG Base Excess (-2.0-2.0) mmol/ L Luis Manuel Test A-a O2 Gradient (5-10) mmHg Hematocrit (37-47) % Hgb O2 Saturation (95-100) % Carboxyhemoglobin (0.4-20.1) %THgb Methemoglobin (0.4-1.5) % Total Hemoglobin (12-16) g/dL Ionized Calcium (1.1-1.4) mmol/L O2 Delivery Device FiO2 % Web Application Dev Specialist ID Sodium (136-145) mmol/L Potassium (3.5-5.1) mmol/L Chloride (98-107) mmol/L Carbon Dioxide (22-29) mmol/L Anion Gap (5-19) BUN (8-23) mg/dL Creatinine (0.5-0.9) mg/dL GFR Calculation Glucose (65-115) mg/dL Calculated Osmolal ity (285-295) mOsm/k g Lactate 1.5 (0.5-2.2) mmol/L Calcium (8.5-10.5) mg/dL Phosphorus 3.8 (2.5-4.5) mg/dL Magnesium 2.0 (1.7-2.3) mg/dL Ferritin 1419 H (15-150) ng/mL Total Bilirubin (0.15-1.2) mg/dL AST (0-32) U/L ALT (0-33) U/L Alkaline Phosphata se (35-105) IU/L Lactate Dehydrogen ase 233 H (135-214) U/L Creatine Kinase 266 H (26-192) U/L Troponin T Baselin e (0-10) ng/L Troponin T 120 Min [place] Delta Troponin T Troponin T Hi Sens 6Hr (0-10) ng/L Troponin T Hi Sens 6Hr Delta (0-12) ng/L C-Reactive Protein 6.4 H (0.0-4.9) mg/L NT-Pro-B Natriuret Pep 13 (0-125) pg/mL Total Protein (6.6-8.7) g/dL Albumin (3.5-5.2) g/dL Globulin (1.3-4.6) g/dL Lipase (13-60) U/L Procalcitonin 0.12 (0-0.5) ng/mL Urine Color (Yellow) Urine Appearance (CLEAR) Urine pH (5-7) Ur Specific Gravit y (1.005-1.030) Urine Protein (Negative) Urine Glucose (UA) (Normal) Urine Ketones (Negative) Urine Blood (Negative) Urine Nitrate (Negative) Urine Bilirubin (Negative) Urine Urobilinogen (Negative) mg/dL Ur Leukocyte Perla ase (Negative) Urine RBC (0-2) /hpf Urine WBC (0-5) /hpf Ur Squamous Epith Cells (0-5) /hpf Amorphous Sediment Urine Bacteria (NONE) /hpf Hyaline Casts /lpf SARS-CoV-2 Ag (Rap id) (Negative) Discharge Plan Discharge Patient Disposition: Placed in Observation Admit Provider: Myra Patel Clinical Impression: Cough syncope, COVID-19, JANEEN (acute kidney injury) Coding Level of Care Code ED Moving Consultant for Chg Fwd Exam Comprehensive
[2021-05-24 17:28] LABS: Basophils % 0.3 %; Hematocrit 44.4 % (37.0-47.0); Hemoglobin 14.4 g/dL (11.5-15.3); Lymphocytes # 1.1 10^3/uL (0.8-4.8); Lymphocytes % 17.8 %; Mean Corpuscular HGB Conc 32.4 g/dL (30.0-36.0); Mean Corpuscular Hemoglobin 27.7 pg (28.0-34.0); Mean Corpuscular Volume 85.4 fL (81-99); Mean Platelet Volume 10.5 fL (7.4-10.4); Monocytes # 0.4 10^3/uL (0.2-0.9); Monocytes % 7.2 %; Neutrophils # 4.45 10^3/uL (1.8-7.7); Neutrophils % 74.2 %; Nucleated Red Blood Cells % 0 %; Platelet Count 216 10^3/cmm (130-400); Red Cell Distribution Width 13.2 % (12.1-15.1)
[2021-05-24 17:50] LABS: Troponin(5th) Baseline 9 ng/L (0-10)
[2021-05-24 17:52] LABS: Alanine Aminotransferase 64 U/L (0-33); Albumin Level 4.8 g/dL (3.5-5.2); Alkaline Phosphatase 71 IU/L (35-105); Anion Gap 21.5 (5-19); Aspartate Amino Transferase 74 U/L (0-32); Blood Urea Nitrogen 28 mg/dL (8-23); Calcium 9.2 mg/dL (8.5-10.5); Carbon Dioxide 23 mmol/L (22-29); Chloride 94 mmol/L (98-107); Creatine Phosphokinase 288 U/L (26-192); Globulin 2.8 g/dL (1.3-4.6); Glucose 145 mg/dL (65-115); Lipase 28 U/L (13-60); Osmolality Calculated 288 mOsm/kg (285-295); Potassium 3.5 mmol/L (3.5-5.1); Sodium 135 mmol/L (136-145); Total Bilirubin 0.3 mg/dL (0.15-1.2); Total Protein 7.6 g/dL (6.6-8.7)
[2021-05-24 18:00] LABS: ABG PCO2 33.3 mmHg (35-45); ABG PH Result 7.41 (7.35-7.45); Alveolar-Arterial Oxygen Gradi 6.6 mmHg (5-10); Arterial Blood Gas Hematocrit 45.5 % (37-47); Base Excess ABG -2.5 mmol/L (-2.0-2.0); Blood Gas Allen Test Pos; Blood Gas Operator Identificat AMH; Blood Gas Sample Site Radial, left; Blood Gas Sample Type Arterial; Carboxyhemoglobin 0.8 %THgb (0.4-20.1); HCO3 ABG 21.3 mmol/L (22-26); HGB O2 Sat 89.3 % (95-100); Ionized Calcium Level - ABG 1.2 mmol/L (1.1-1.4); Methemoglobin 0.7 % (0.4-1.5); Oxygen Device ROOM AIR; Oxygen Saturation ABG 90.7; PO2 ABG 56.6 mmHg (80.0-100.0); Potassium Level - ABG 3.5 mmol/L (3.5-5.0); Total Hemoglobin 14.8 g/dL (12-16)
[2021-05-24 18:30] LABS: Add Urine Microscopic? YES; Bilirubin Urine 1+ (Negative); Blood Urine Neg (Negative); Glucose Urine UA Norm (Normal); Ketones Urine 1+ (Negative); Leukocyte Esterase Urine Negative (Negative); Nitrate Urine Positive (Negative); Protein Urine Trace (Negative); Specific Gravity, Urine 1.025 (1.005-1.030); Urine Appearance SL Hazy (CLEAR); Urine Color Yellow (Yellow); Urobilinogen Urine 1 mg/dL (Negative); pH Urine 5 (5-7)
[2021-05-24 18:43] LABS: Add Urine Culture? No; Bacteria Urine 3+ /hpf; RBC Urine 0-4 /hpf (0-2); Squamous Epithelial Cell Urine 15-25 /hpf (0-5)
[2021-05-24 18:46] LABS: SARS Covid-2 Antigen Positive (Negative)
--- NOTE | 2021-05-24 18:58 | ECG_ITS ---
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 Measurements Intervals [place] Rate: 99 P: 7 [place]: 151 QRS: -21 QRSD: 96 T: 129 QT: 337 QTc: 434 Interpretive Statements SINUS RHYTHM BORDERLINE LEFT AXIS DEVIATION [QRS AXIS < -20] NONSPECIFIC T-WAVE ABNORMALITY Compared to ECG 05/24/2021 17:17:00 No significant changes Electronically Signed On 05-25-2021 17:21:36 CDT by Diego Lambert M.D. [email or web address]
[2021-05-24] MEDS: sodium chloride 0.9% 500 ML 999 ML IV (19:20)
--- NOTE | 2021-05-24 19:55 | PC.NURSE ---
BAM CONSENT SIGNED; LABS DRAWN
--- NOTE | 2021-05-24 20:09 | P.HP_ITS ---
Providers/Chief Complaint Admitting Physician: Myra Patel MD Primary Care Provider: BEN Garcia Chief Complaint: NEAR SYNCOPE, CLAMMY, COUGH History of Present Illness Anastacia Johnson is a 76 year old female who presented to the emergency room with chief complaint of dizziness and feeling like she was going to pass out. She began not feeling well about a week ago with cough, upper respiratory symptoms and general malaise. She has had brain fog. She is also had some cramping in her lower extremities. She started having diarrhea several days ago. Describes quantity as a lot. She has felt thirsty. She has continued taking her medications as prescribed, 1 of which is a diuretic. She had a bad coughing spell today and felt dizzy and fell on her knees abrading her knee. She almost passed out but did not lose consciousness. She had some chest discomfort with coughing. She was concerned because she lives alone. In the emergency room she was evaluated and actually found to have a rapid Covid antigen positive. PCR was sent. She has had fever and chills headache and just general malaise. She is not requiring oxygen. She was right within the window when she could receive monoclonal antibody. She has appropriate risk factors for potential progression of disease. With her near syncopal episode and evidence of some volume depletion, decision was made to put her in overnight for some IV fluids and monitoring, and addition to monoclonal antibody treatment, particularly given that she lives alone. Review of Systems Const: Reports: fever(s), chills, change in appetite, fatigue, malaise and other (No effect on taste or smell) Eyes: Denies: change in vision ENMT: Reports: nasal congestion; Denies: throat pain Card: Reports: chest pain (Pressure, worse with coughing); Denies: palpitations or edema Resp: Reports: dyspnea, productive cough and non-productive cough GI: Reports: diarrhea; Denies: abdominal pain, nausea, vomiting, constipation, hematochezia or melena : Reports: urinary frequency; Denies: difficulty voiding or hematuria Musc: Reports: muscle cramps (From knees down to toes bilaterally) and muscle weakness; Denies: joint redness or joint warmth Skin/Breast: Reports: sores (Knee); Denies: rash Neuro: Reports: headache(s) and dizziness; Denies: numbness in extremities, weakness in extremities or difficulty walking Jose/Lymph: Denies: easy bruising or easy bleeding Medications/Allergies Home Medications Medication Instructions Recorded Confirmed Last Taken Type hydrochlorothiazide 12.5 mg capsule 12.5 mg PO DAILY PRN 02/25/21 05/24/21 Unknown History metformin 500 mg tablet 500 mg PO BID 02/25/21 05/24/21 05/24/21 10:00 History rosuvastatin 20 mg tablet 20 mg PO QAM 02/25/21 05/24/21 05/24/21 History Vitamin C 1 tab PO DAILY 05/24/21 05/24/21 Unknown History Vitamin D3 1 cap PO DAILY 05/24/21 05/24/21 Unknown History acetaminophen [Tylenol Extra 500 mg PO QAM 05/24/21 05/24/21 05/24/21 10:00 History Strength] pantoprazole 40 mg PO QAM 05/24/21 05/24/21 05/24/21 10:00 History tizanidine 4 mg PO TID PRN 05/24/21 05/24/21 05/24/21 10:00 History Allergies Allergy/AdvReac Type Severity Reaction Status Date / Time No Known Allergies Allergy Verified 05/24/21 17:37 PFSH Acute PFSH: Medical History (Updated 05/25/21 @ 06:43 by Myra Patel MD) Cervical disc disorder with myelopathy of mid-cervical region Diabetes mellitus, type II Hyperlipidemia Hypertension Lumbar post-laminectomy syndrome Osteoarthritis Spondylolisthesis at L4-L5 level Spondylolisthesis, cervical region Stenosis of cervical spine with myelopathy Surgical History (Updated 05/24/21 @ 20:08 by Myra Patel MD) History of carpal tunnel surgery of left wrist (05/27/20) Dr. Yanick Talavera: Open release of the median nerve at the left wrist History of cholecystectomy History of hysterectomy Status post laminectomy with spinal fusion (~2014) Dr. Sohail Gong L4-L5 fusion/fixation Family History Father Diabetes Mother Cancer ovarian Social History (Updated 05/24/21 @ 20:10 by Myra Patel MD) Smoking and tobacco status: never smoked Second hand smoke exposure: No Alcohol intake: never Household members: none Marital status: / Current occupational status: disabled Vitals/I&O/Wt Last Vital Signs Temp 97.8 F 05/24/21 15:57 Pulse 93 05/24/21 19:40 Resp 18 05/24/21 19:40 BP 107/75 05/24/21 19:40 Pulse Ox 96 05/24/21 19:40 Weight last 48 hrs Weight 73.936 kg Physical Exam Narrative: EXAM NARRATIVE: Constitutional: Awake and alert, looks tired HEENT: Normocephalic, dry oral mucosa, edentulous, rhinorrhea Neck: Supple Respiratory: Clear to auscultation bilaterally Cardiovascular: Regular rhythm, pulses intact Abdomen: Soft, nontender, slightly rotund : Normal external genitalia Extremities: No pitting edema or cyanosis Skin: Dry, has an abrasion to her knee that is small Neuro: Speech clear, face symmetric, moves all extremities Psych: Normal affect Data : 05/24/21 17:19 05/24/21 17:19 A&P Assessment and plan (1) Cough syncope: Status: Acute (2) JANEEN (acute kidney injury): Status: Acute (3) COVID-19: Status: Acute (4) Hypertension: Status: Chronic Qualifiers: Hypertension type: essential hypertension Qualified Code(s): I10 - Essential (primary) hypertension (5) Diabetes mellitus, type II: Status: Chronic Qualifiers: Diabetes mellitus rn long term care insulin use: without group home use Diabetes mellitus complication status: without complication Qualified Code(s): E11.9 - Type 2 diabetes mellitus without complications (6) Hyperlipidemia: Status: Chronic Qualifiers: Hyperlipidemia type: unspecified Qualified Code(s): E78.5 - Hyperlipidemia, unspecified Additional A&P Information Abnormal urinalysis, contaminated specimen but with positive nitrites suggestive of urinary tract infection Observation admission IV fluids Continue with Regeneron infusion initiated in the emergency room > patient is not requiring oxygen for her Covid. Admitted primarily because of acute kidney injury and dehydration from diarrhea and near syncopal episode. Consider at risk for progressive symptoms given comorbid conditions. Continue dexamethasone Rocephin for possible UTI Recheck electrolytes and orthostatics in the morning Continue home statin therapy Hold home HCTZ Reevaluate tomorrow Continue PPI Lovenox for DVT prophylaxis Continue vitamin D and vitamin C which she was taking at home, add zinc Inhalers if needed Anticipate discharge home though she does live alone and have recommended that she have somebody that can check on her regularly Plans, findings, concerns discussed with patient and she was given opportunity to ask questions Full code Attestations Medical Necessity Statement*: Currently anticipate a stay less than two midnights in a patient who lives alone being admitted for dizziness, weakness, near syncope in the setting of Covid associated diarrhea and acute kidney injury. She is not having respiratory symptoms. She is getting IV fluids and also being given Regeneron as she is still within the first 10 days after onset of symptoms Coding Level of Care Code Acute Block Engraver for [facility] Fwd Diagnoses Cough syncope R05 JANEEN (acute kidney injury) N17.9 COVID-19 U07.1 Hypertension I10 Hypertension type: essential hypertension Diabetes mellitus, type II E11.9 Diabetes mellitus group home insulin use: without group home use Diabetes mellitus complication status: without complication Hyperlipidemia E78.5 Hyperlipidemia type: unspecified
[2021-05-24 20:45] LABS: Troponin 5 2HR 7.44 ng/L (0-10)
[2021-05-24 20:47] LABS: Troponin 5 2HR Delta -1.56 ABS# (0-10)
--- NOTE | 2021-05-24 23:08 | PC.NURSE ---
Patient sleeping. RR even and nonlabored. VS trending
[2021-05-25] VITALS (12 sets, daily range): BP systolic 103–127; BP diastolic 66–77; PULSE 82–115; RESP 16–18; TEMP 36.7–37.2; O2SAT 89–94
[2021-05-25] MEDS: sodium chloride 0.9% 1,000 ML 100 ML IV ×2 (01:08→10:04)
[2021-05-25 01:41] LABS: Troponin 5 6HR 9.01 ng/L (0-10); Troponin 5 6HR Delta 0.01 ng/L (0-12)
[2021-05-25 06:25] LABS: Basophils % 0.3 %; Hematocrit 42.6 % (37.0-47.0); Hemoglobin 13.8 g/dL (11.5-15.3); Lymphocytes # 1.6 10^3/uL (0.8-4.8); Lymphocytes % 28.2 %; Mean Corpuscular HGB Conc 32.4 g/dL (30.0-36.0); Mean Corpuscular Hemoglobin 27.9 pg (28.0-34.0); Mean Corpuscular Volume 86.1 fL (81-99); Mean Platelet Volume 10.3 fL (7.4-10.4); Monocytes # 0.4 10^3/uL (0.2-0.9); Monocytes % 6.1 %; Neutrophils # 3.75 10^3/uL (1.8-7.7); Neutrophils % 65.1 %; Nucleated Red Blood Cells % 0 %; Platelet Count 179 10^3/cmm (130-400); Red Blood Count 4.95 10^6/uL (4.1-5.3); Red Cell Distribution Width 13.2 % (12.1-15.1); White Blood Count 5.8 10^3/uL (4.0-10.0)
[2021-05-25 06:48] LABS: Anion Gap 19.2 (5-19); Blood Urea Nitrogen 30 mg/dL (8-23); Calcium 8.8 mg/dL (8.5-10.5); Carbon Dioxide 24 mmol/L (22-29); Chloride 97 mmol/L (98-107); Glucose 96 mg/dL (65-115); Osmolality Calculated 290 mOsm/kg (285-295); Potassium 3.2 mmol/L (3.5-5.1); Sodium 137 mmol/L (136-145)
--- NOTE | 2021-05-25 07:05 | ECG_ITS ---
[facility] ED Test Date: 2021-05-25 Pat Name: Anastacia Johnson Department: Room: 271 Gender: Female Direct Mail Marketer: : 1945 Requested By: Myra Patel Order Number: [id number] Maria Del Carmen MD: Taina Santillan M.D. Measurements Intervals [place] Rate: 87 P: 24 ME: 158 QRS: -16 QRSD: 99 T: 128 QT: 365 QTc: 441 Interpretive Statements SINUS RHYTHM NONSPECIFIC T-WAVE ABNORMALITY Compared to ECG 05/24/2021 19:06:54 No significant changes Electronically Signed On 05-28-2021 22:08:27 CDT by Taina Santillan M.D. [email or web address] [id number]
[2021-05-25 07:14] LABS: INR 1.02 (0.8-1.2); Partial Thromboplastin Time 34.9 SECONDS (23.9-36.7)
[2021-05-25 07:17] LABS: D Dimer 0.32 ug/mIFEU (0-0.59)
[2021-05-25 07:26] LABS: NT Pro B Type Natriuretic Pept 13 pg/mL (0-125); Procalcitonin 0.12 ng/mL (0-0.5)
[2021-05-25 07:37] LABS: C Reactive Protein 6.4 mg/L (0.0-4.9); Creatine Phosphokinase 266 U/L (26-192); Phosphorus 3.8 mg/dL (2.5-4.5)
[2021-05-25 07:43] LABS: Fibrinogen 392 mg/dL (174-498)
[2021-05-25 07:51] LABS: Ferritin 1419 ng/mL (15-150)
[2021-05-25 07:52] LABS: Lactate Dehydrogenase 233 U/L (135-214)
--- NOTE | 2021-05-25 08:10 | PC.NURSE ---
Pt felt weak when she got up from the toilet & had to sit down on a bsc in the shower. Nikki Benson CNA came to me for some assistance. Upon entering the pts bathroom, pt was leaning back on the bsc with her head against the wall, eyes fixed on the ceiling. I shook her shoulders & asked if she was ok, pt did not respond, she was pale & diaphoretic. Rapid response was then called. Unable to obtain a bp, BG was 130. IV bolus of 250 ml started, pt began to vomit a small amount of yellowish emesis. Now becoming more alert, was assisted to the wheelchair x 2 assist & back to bed. BP 103/?, pulse 113, Sats in mid 90's. Pt states she is now feeling better. Dr. Patel in room to assess.
[2021-05-25] MEDS: zinc gluconate 50 mg Tablet PO (08:20)
[2021-05-25] MEDS: pantoprazole DR 40 mg Tablet PO (08:20)
[2021-05-25] MEDS: ascorbic acid 500 mg Tablet PO ×2 (08:20→16:50)
[2021-05-25] MEDS: cholecalciferol (vitamin D3) 1,000 unit Tablet 2000 UNIT PO (08:20)
[2021-05-25] MEDS: dexamethasone 4 mg/mL INJ 6 MG IVP (08:20)
[2021-05-25] MEDS: cefTRIAXone 1,000 MG in sodium chloride 0.9% (plus) 50 ML 100 MG IV (08:20)
[2021-05-25] MEDS: nitrofurantoin SR (BID) 100 mg Capsule PO ×2 (08:20→16:50)
[2021-05-25] MEDS: enoxaparin 40 mg/0.4 mL Syringe SUBCUT (08:21)
[2021-05-25 08:24] LABS: Lactate (Lactic Acid level) 1.5 mmol/L (0.5-2.2)
[2021-05-25] MEDS: albuterol 8 gm MDI 2 PUFF INHALATION ×2 (08:35→19:52)
[2021-05-25 08:37] LABS: Glucose Point of Care 135 mg/dL (70-110)
[2021-05-25 12:05] LABS: Glucose Point of Care 195 mg/dL (70-110)
--- NOTE | 2021-05-25 15:14 | PC.NURSE ---
Rcvd verbal order from Dr Craven to stop patient's iv NS order. narrative writer put order in.
[2021-05-25 17:05] LABS: Glucose Point of Care 180 mg/dL (70-110)
--- NOTE | 2021-05-25 18:18 | P.PN_ITS ---
Subjective Subjective: Interval history: Feels like her head is swimming, feels very tired, no further presyncopal or syncopal episodes while staying in bed. Denies significant shortness of breath. Has not been getting out of bed. Documented desaturation to 89%, but she is not aware of when that may have been. In the room assessing her oxygenation she saturates 93-95% on room air. Lives alone at home. At home states she needs to be active and get around to the care of things. States that her friend who could have helped her also has Covid herself. Vitals/I&O/Wt Last Vital Signs Temp 98.5 F 05/25/21 16:00 Pulse 82 05/25/21 16:00 Resp 16 05/25/21 16:00 BP 112/72 05/25/21 16:00 Pulse Ox 94 05/25/21 16:00 05/25/21 05/25/21 05/25/21 06:59 14:59 22:59 Intake Total 60 / 60 1063.333 / 1063.333 720 / 1783.333 Output Total 0 / 0 Balance 60 / 60 1063.333 / 1063.333 720 / 1783.333 Weight last 48 hrs Weight 73.936 kg Physical Exam Const: COMMON NORMALS: no acute distress, patient oriented x3 and alert GENERAL APPEARANCE: cooperative and comfortable ORIENTATION/CONSCIOUSNESS: Yes awake HENMT: COMMON NORMALS: oropharynx normal Neck/C-Spine: COMMON NORMALS: no JVD Resp: COMMON NORMALS: normal respiratory effort and clear to auscultation bilaterally AUSCULTATION: clear to auscultation bilaterally Cardio: COMMON NORMALS: no JVD, regular rhythm, S1 normal heart sound present, S2 normal heart sound present and No murmurs present (Cardio) RHYTHM: regular rhythm HEART SOUNDS: S1 normal heart sound present and S2 normal heart sound present GI: COMMON NORMALS: Normal to inspection, nondistended, normoactive bowel sounds present, Soft to palpation and non-tender PALPATION: Yes Soft to palpation Extremity: COMMON NORMALS: no joint enlargement and no pedal edema Neuro: COMMON NORMALS: patient oriented x3 and moves all extremities SENSORIUM/ORIENTATION: Yes alert Skin: COMMON NORMALS: no rashes or lesions noted GENERAL SKIN EXAM: no rashes or lesions noted Data : 05/25/21 06:00 05/25/21 06:00 A&P Assessment and plan (1) COVID-19: Appears to have syncopal episode earlier, possibly due to dyspnea and hypoxia, otherwise possible orthostasis, blood pressure noted decreased to 90/54 last night, early this morning at 6 AM syncopal episode noted tachycardic, hypotensive. Without recurrence at rest. Appears to be Covid related. Again possible autonomic instability or exertional hypoxia. At rest does have documented saturation 99%, however, during my evaluation saturating 93-95% on room air. Is not short of breath at rest currently. Does feel like her head is swimming . At this time given presyncopal episodes, possibly fluctuating saturations, exertional intolerance where she lives alone and currently has nobody to help her at home, continue hospitalization with close monitoring of her saturation and blood pressures and supervised mobilization attempts. Currently on Decadron, will continue. Status: Acute (2) Cough syncope: Status: Acute (3) JANEEN (acute kidney injury): Appears to be improving. Creatinine down to 1.1. Baseline appears normal. Continue to monitor. Avoid hypotension. Status: Acute (4) Hypertension: Status: Chronic Qualifiers: Hypertension type: essential hypertension Qualified Code(s): I10 - Essential (primary) hypertension (5) Diabetes mellitus, type II: Status: Chronic Qualifiers: Diabetes mellitus care home insulin use: without care home use Diabetes mellitus complication status: without complication Qualified Code(s): E11.9 - Type 2 diabetes mellitus without complications (6) Hyperlipidemia: Status: Chronic Qualifiers: Hyperlipidemia type: unspecified Qualified Code(s): E78.5 - Hyperlipidemia, unspecified Additional A&P Information Abnormal urinalysis: Continues empirically on ceftriaxone for now. Will not discontinue at the moment but requesting repeat UA for harness cleaner sample. Attestations Medical Necessity Statement*: Continue admission for monitoring and treatment of moderate COVID-19 illness with significant autonomic dysfunction with 2 syncopal episodes with hemodynamic instability with exertion, monitoring of oxygenation, reassessment of urine due to possible UTI in a lady who lives alone, whose social support is her friend but also is ill with COVID-19, currently with exertional intolerance, needing to be able to manage things independently at home. Coding Level of Care Code Acute Supervisor Fertilizer for [facility] Diagnoses COVID-19 U07.1 Cough syncope R05 JANEEN (acute kidney injury) N17.9 Hypertension I10 Hypertension type: essential hypertension Diabetes mellitus, type II E11.9 Diabetes mellitus care home insulin use: without care home use Diabetes mellitus complication status: without complication Hyperlipidemia E78.5 Hyperlipidemia type: unspecified
[2021-05-25] MEDS: potassium chloride ER 20 mEq Tablet PO (18:47)
[2021-05-25 21:28] LABS: Glucose Point of Care 207 mg/dL (70-110)
[2021-05-26] VITALS (10 sets, daily range): BP systolic 109–138; BP diastolic 68–81; PULSE 69–88; RESP 12–20; TEMP 36.6–37.1; O2SAT 91–96
[2021-05-26] MEDS: guaiFENesin 100 mg/5 mL UDC 10 mL 200 MG PO (03:51)
[2021-05-26] MEDS: atorvastatin 40 mg Tablet 80 MG PO (05:32)
[2021-05-26 05:33] LABS: Basophils % 0.2 %; Hematocrit 39.3 % (37.0-47.0); Hemoglobin 12.9 g/dL (11.5-15.3); Lymphocytes # 1.7 10^3/uL (0.8-4.8); Lymphocytes % 30.9 %; Mean Corpuscular HGB Conc 32.8 g/dL (30.0-36.0); Mean Corpuscular Hemoglobin 28.3 pg (28.0-34.0); Mean Corpuscular Volume 86.2 fL (81-99); Mean Platelet Volume 10.2 fL (7.4-10.4); Monocytes # 0.4 10^3/uL (0.2-0.9); Monocytes % 7.4 %; Neutrophils # 3.33 10^3/uL (1.8-7.7); Neutrophils % 61.3 %; Nucleated Red Blood Cells % 0 %; Platelet Count 186 10^3/cmm (130-400); Red Blood Count 4.56 10^6/uL (4.1-5.3); Red Cell Distribution Width 13.2 % (12.1-15.1); White Blood Count 5.4 10^3/uL (4.0-10.0)
[2021-05-26 05:55] LABS: Alanine Aminotransferase 46 U/L (0-33); Alkaline Phosphatase 60 IU/L (35-105); Anion Gap 14.6 (5-19); Aspartate Amino Transferase 48 U/L (0-32); Blood Urea Nitrogen 20 mg/dL (8-23); Calcium 9.6 mg/dL (8.5-10.5); Carbon Dioxide 26 mmol/L (22-29); Chloride 102 mmol/L (98-107); Creatinine Clr Calc Pharmacy 56.4068; Globulin 2.9 g/dL (1.3-4.6); Glucose 148 mg/dL (65-115); Osmolality Calculated 293 mOsm/kg (285-295); Phosphorus 2.2 mg/dL (2.5-4.5); Potassium 3.6 mmol/L (3.5-5.1); Sodium 139 mmol/L (136-145); Total Bilirubin 0.2 mg/dL (0.15-1.2); Total Protein 6.9 g/dL (6.6-8.7)
[2021-05-26 06:09] LABS: D Dimer <= 0.27 ug/mIFEU (0-0.59)
[2021-05-26 07:22] LABS: Glucose Point of Care 133 mg/dL (70-110)
[2021-05-26] MEDS: cholecalciferol (vitamin D3) 1,000 unit Tablet 2000 UNIT PO (07:45)
[2021-05-26] MEDS: zinc gluconate 50 mg Tablet PO (07:45)
[2021-05-26] MEDS: cefTRIAXone 1,000 MG in sodium chloride 0.9% (plus) 50 ML 100 MG IV (07:45)
[2021-05-26] MEDS: ascorbic acid 500 mg Tablet PO ×2 (07:45→17:44)
[2021-05-26] MEDS: pantoprazole DR 40 mg Tablet PO (07:45)
[2021-05-26] MEDS: enoxaparin 40 mg/0.4 mL Syringe SUBCUT (07:46)
[2021-05-26] MEDS: dexamethasone 4 mg/mL INJ 6 MG IVP (07:46)
[2021-05-26] MEDS: albuterol 8 gm MDI 2 PUFF INHALATION ×2 (08:40→20:36)
[2021-05-26 09:53] LABS: Add Urine Microscopic? NO; Charge for UA Resulting for Rev
[2021-05-26 10:03] LABS: Bilirubin Urine Neg (Negative); Blood Urine Neg (Negative); Glucose Urine UA Norm (Normal); Ketones Urine Negative (Negative); Leukocyte Esterase Urine Negative (Negative); Nitrate Urine Negative (Negative); Protein Urine Trace (Negative); Specific Gravity, Urine 1.015 (1.005-1.030); Urine Appearance Clear (CLEAR); Urine Color Yellow (Yellow); Urobilinogen Urine Norm (Negative); pH Urine 5 (5-7)
[2021-05-26 11:17] LABS: Glucose Point of Care 254 mg/dL (70-110)
--- NOTE | 2021-05-26 12:49 | PC.CHAP ---
Pastoral Care Encounter/Spiritual Assessment Type of Contact [] Declined coke drawer hand visit [] Patient/Family/Request visit [] Outpatient visit [x] Follow-up visit [] Physician referral [] Code/Alert [] Routine visit [] Staff referral [] Actively dying [] Patient sleeping [] Family support [] [] Out of room [] Palliative care [] [] Receiving care in room [] Pre-surgical visit [] Trauma [] Long length of stay [] ICU visit [] Other: Relational/Emotional Strength [] Patient feels connected with others/family/visitors/staff [] Distress [] Loneliness/isolation [] Abandonment Spirituality of Patient [] Person of Abbie [] Attends Religion of their Abbie [] Believes in Prayer [] Reads Bible or Muslim materials [] There are Spiritual issues to be addressed Supervisor Motor Vehicle [employer] Interventions [] Prayer [] Active listening [] Non-anxious presence [] Spiritual/emotional support [] Crisis/trauma care [] Spiritual counseling [] Bereavement support [] Provided bereavement packet [] Provided Bible/devotional materials [] Provided toy/stuffed animal, coloring book to patient or family member [] Provided Communion [] Anointing/[place] [] Salvation [] Completed spiritual assessment [] Other: Impact on Illness or Injury [] Angry [] Fearful [] Anxious [] Often cries [] Exhaustion [] Unable to work [] Unable to attend episcopal [] Unable to walk/stand [] Unable to read [] Unable to drive [] Unable to eat/drink [] Unable to sleep [] Unable to be with family [] Patient intubated [] Other: Summary Time spent with patient
--- NOTE | 2021-05-26 13:51 | CT_ITS ---
WS: [id number] Adele Johnson [address] HEAD TECHNIQUE: Noncontrast CT of the head obtained from the skullbase to the vertex. CLINICAL INFORMATION: Dizziness COMPARISON: May 23, 2021 DLP: [address] scans at [facility] use at least one of these dose optimization techniques: automat ed exposure control; mA and/or kV adjustment per patient size (includes targeted exams where dose is matched to clinical indication); or iterative reconstruction. FINDINGS: No evidence of intracranial hemorrhage or mass effect. Ventricular system and basal cisterns are kyle nt. Mild small vessel changes with mild parenchymal volume loss. No extra-axial fluid collections. No evidence of mass or mass effect. Normal agarwal-white differentiation. Mild mucosal thickening in the ethmoid air cells..Normal visualized soft tissues. CT/CT head wo con* [id number] IMPRESSION: 1. No evidence of intracranial hemorrhage or mass effect. 2. Mild small vessel changes. Mild parenchymal volume loss. 3. No acute intracranial findings.
--- NOTE | 2021-05-26 13:52 | P.PN_ITS ---
Subjective Subjective: Interval history: 76-year-old female presented with dizziness and COVID-19 infection. Sats stable on room air. Dizziness about the same. Meclizine ordered today. Patient is not orthostatic. Vitals and labs stable. Vitals/I&O/Wt Last Vital Signs Temp 98.3 F 05/26/21 12:00 Pulse 79 05/26/21 12:00 Resp 12 05/26/21 12:00 BP 130/77 05/26/21 12:00 Pulse Ox 92 05/26/21 12:00 05/25/21 05/26/21 05/26/21 22:59 06:59 14:59 Intake Total 96 / 2022.333 650 / 650 Balance 962022.333 650 / 650 Weight last 48 hrs Weight 163 lb Physical Exam Const: COMMON NORMALS: no acute distress, average body habitus and patient oriented x3 Neck/C-Spine: COMMON NORMALS: no JVD Chest: COMMONS NORMALS: normal inspection of the chest Resp: COMMON NORMALS: normal respiratory effort and No retractions Cardio: COMMON NORMALS: no JVD, regular rate and regular rhythm RATE: regular rate RHYTHM: regular rhythm GI: COMMON NORMALS: Normal to inspection, nondistended, normoactive bowel sounds present and Soft to palpation PALPATION: Yes Soft to palpation Neuro: COMMON NORMALS: patient oriented x3, CN's II-XII intact bilaterally and moves all extremities Psych: COMMON NORMALS: mental status grossly normal and Normal thought process present THOUGHT PROCESS: Normal thought process present Data : 05/26/21 05:02 05/26/21 05:02 A&P Assessment and plan (1) Vertigo: Etiology unclear electrolytes okay vitals okay We will check a CT scan of the head Add meclizine Likely DC soon consider physical therapy eval prior to discharge Status: Acute (2) COVID-19: Sats stable on room air Continue sorbic acid will continue zinc add vitamin D Status: Acute Attestations Medical Necessity Statement*: Anastacia Johnson is being changed to inpatient status as stay will now exceed 2 midnights. Ongoing hospital care is necessary for Coding Level of Care Code Acute Personal Banking Advisor for [facility] Diagnoses Vertigo R42 COVID-19 U07.1
[2021-05-26] MEDS: meclizine 25 mg tablet PO ×3 (15:18→21:43)
[2021-05-26 17:39] LABS: Glucose Point of Care 240 mg/dL (70-110)
[2021-05-26 20:53] LABS: Glucose Point of Care 234 mg/dL (70-110)
[2021-05-27] VITALS (7 sets, daily range): BP systolic 120–138; BP diastolic 75–81; PULSE 69–92; RESP 18; TEMP 36.7–36.8; O2SAT 92–94
[2021-05-27 03:57] LABS: Quest SARS-CoV-2 RNA DETECTED (NOT DETECTED)
[2021-05-27] MEDS: atorvastatin 40 mg Tablet 80 MG PO (06:03)
[2021-05-27 06:56] LABS: Glucose Point of Care 117 mg/dL (70-110)
[2021-05-27] MEDS: albuterol 8 gm MDI 2 PUFF INHALATION (07:59)
[2021-05-27] MEDS: enoxaparin 40 mg/0.4 mL Syringe SUBCUT (08:09)
[2021-05-27] MEDS: cholecalciferol (vitamin D3) 1,000 unit Tablet 2000 UNIT PO (08:09)
[2021-05-27] MEDS: dexamethasone 4 mg/mL INJ 6 MG IVP (08:09)
[2021-05-27] MEDS: meclizine 25 mg tablet PO (08:09)
[2021-05-27] MEDS: zinc gluconate 50 mg Tablet PO (08:09)
[2021-05-27] MEDS: pantoprazole DR 40 mg Tablet PO (08:09)
[2021-05-27] MEDS: ascorbic acid 500 mg Tablet PO (08:09)
[2021-05-27] MEDS: cefTRIAXone 1,000 MG in sodium chloride 0.9% (plus) 100 ML 200 MG IV (09:27)
[2021-05-27 10:05] LABS: Alanine Aminotransferase 44 U/L (0-33); Alkaline Phosphatase 59 IU/L (35-105); Anion Gap 16.7 (5-19); Aspartate Amino Transferase 46 U/L (0-32); Blood Urea Nitrogen 18 mg/dL (8-23); Calcium 9.5 mg/dL (8.5-10.5); Carbon Dioxide 24 mmol/L (22-29); Chloride 105 mmol/L (98-107); Creatinine Clr Calc Pharmacy 56.4068; Globulin 2.9 g/dL (1.3-4.6); Glucose 151 mg/dL (65-115); Osmolality Calculated 299 mOsm/kg (285-295); Potassium 3.7 mmol/L (3.5-5.1); Sodium 142 mmol/L (136-145); Total Bilirubin 0.3 mg/dL (0.15-1.2); Total Protein 6.9 g/dL (6.6-8.7)
--- NOTE | 2021-05-27 11:02 | PM.DCS ---
Discharge Providers Date of Admission: 05/25/21 08:08 Date of Discharge: 05/27/21 Attending Provider at Admission: Myra Patel MD Attending Provider at Discharge: Kurt Iverson MD Primary Care Provider: BEN Garcia Diagnoses at Discharge Discharge Diagnosis (1) Vertigo: Status: Acute (2) COVID-19: Status: Acute Reason for Visit Reason for Visit: NEAR SYNCOPE, CLAMMY, COUGH Hospital Course Hospital Course Is a 76-year-old female who presented to the ER with complaints of dizziness and feeling she was going to pass out. Reports a 1 week history of symptoms of not feeling well and general malaise. She also reports some brain fog. She was found to have Covid. She was admitted for this. Issues were dizziness. She did have a CT scan of her head. Her electrolytes were okay. Meclizine was added. Physical therapy also evaluated her. Her Covid was monitored. her sats are stable on room air. She was treated with a asorbic acid zinc and vitamin D. The patient was also noted to have some acute kidney injury. This was treated with fluids that appear to be close to her baseline her hypertension was also managed as well as her hyperlipidemia and diabetes. She was also given antibiotics for suspected abnormal UA. With history of UTI. Physical Exam Const: COMMON NORMALS: no acute distress, average body habitus and patient oriented x3 Neck/C-Spine: COMMON NORMALS: no JVD Chest: COMMONS NORMALS: normal inspection of the chest Resp: COMMON NORMALS: normal respiratory effort and No retractions Cardio: COMMON NORMALS: no JVD, regular rate and regular rhythm RATE: regular rate RHYTHM: regular rhythm GI: COMMON NORMALS: Normal to inspection, nondistended, normoactive bowel sounds present and Soft to palpation PALPATION: Yes Soft to palpation Neuro: COMMON NORMALS: patient oriented x3, CN's II-XII intact bilaterally and moves all extremities Psych: COMMON NORMALS: mental status grossly normal and Normal thought process present THOUGHT PROCESS: Normal thought process present Discharge Data Data Completed and Pending: Completed Studies During Hospitalization Category Date Time Status CT head wo con* 7 0450 Routine Cat Scan 05/26/21 13:51 Completed XR chest 1V rahel ble [id number] Stat Exams 05/24/21 16:57 Completed Vitals: Last Vital Signs Temp 98.1 F 05/27/21 16:41 Pulse 92 05/27/21 16:41 Resp 18 05/27/21 16:41 BP 130/75 05/27/21 16:41 Pulse Ox 92 05/27/21 16:41 Discharge Plan Discharge Patient Disposition: Home Condition: Stable Prescriptions: New meclizine 25 mg Tablet 25 mg PO TID Qty: 90 RF: 0 zinc gluconate 50 mg Tablet 50 mg PO DAILY Qty: 30 RF: 0 dexamethasone 6 mg tablet 6 mg PO DAILY Qty: 7 RF: 0 Continued hydrochlorothiazide 12.5 mg capsule 12.5 mg PO DAILY PRN (Reason: see pharmacy comments) RF: 0 metformin 500 mg tablet 500 mg PO BID RF: 0 rosuvastatin 20 mg tablet 20 mg PO QAM RF: 0 tizanidine 4 mg tablet 4 mg PO TID PRN (Reason: Muscle Spasm) RF: 0 Tylenol Extra Strength 500 mg Tablet 500 mg PO QAM RF: 0 pantoprazole 40 mg tablet,delayed release (DR/EC) 40 mg PO QAM RF: 0 Vitamin C 1 tab PO DAILY RF: 0 Vitamin D3 1 cap PO DAILY RF: 0 Discharge Orders: Discharge Order (Routine); Ordered 05/27/21 Ordered By: Kurt Iverson Referrals: Elena Brady FNP [Primary Care Provider] - 06/03/21 9:30 am Discharge Diet: Advance as tolerated Discharge Activity: Resume usual activity Patient Instructions: Meclizine (By mouth), Zinc Sulfate (By mouth), Dexamethasone (By mouth), Cefdinir (By mouth), Community-acquired Pneumonia (DC), Opioid Safety, Pneumonia Stoplight Discharge Attestations Time Spent in Discharge Care*: less than 30 min Quality Metrics Clinical Quality Measures During this hospital stay, did patient experience: None Coding Level of Care Code Acute Chg FW DC note Diagnoses Vertigo R42 COVID-19 U07.1
[2021-05-27 11:31] LABS: Glucose Point of Care 200 mg/dL (70-110)
--- NOTE | 2021-05-27 14:59 | PC.NURSE ---
discharge instructions given to patient and patient verbalized understanding of instructions. typewriter operator automatic called pharmacy to request meds to beds. iv removed and covered with 2x2 and coban. patient waiting on meds and family for ride home.
--- NOTE | 2021-05-27 16:41 | PC.NURSE ---
patient taken to private vehicle via wheelchair by data analyst report writer.
== END 2021-05-27 16:44 | disposition home or self-care (01) | DRG 178 ==
LOC: ER 19:37 → MEDSURG 23:46
PROVIDERS: Internal Medicine; Admitting Provider Hospitalist; Emergency Provider Family Medicine; PCP Nurse Practitioner Family; Visit Provider Internal Medicine
DX: U07.1 COVID-19 (principal); N17.9 Acute kidney failure, unspecified; N39.0 Urinary tract infection, site not specified; I95.9 Hypotension, unspecified; R42 Dizziness and giddiness; Z98.1 Arthrodesis status; E11.9 Type 2 diabetes mellitus without complications; E78.5 Hyperlipidemia, unspecified; I10 Essential (primary) hypertension; M19.90 Unspecified osteoarthritis, unspecified site; M81.0 Age-related osteoporosis without current pathological fracture; E86.0 Dehydration; Z87.440 Personal history of urinary (tract) infections
CPT/HCPCS: 36415; 36416; 36600; 70450; 71045; 80048; 80051; 80053; 81001; 81003; 82330; 82550; 82728; 82805; 82962; 83605; 83615; 83690; 83735; 83880; 84100; 84145; 84484; 85025; 85378; 85384; 85610; 85730; 86140; 87426; 87635; 93005; 94640; 94664; 96372; 99285; G0378; J0696; J1100; J1650; J1815; J3535; J7030; J7040; J8597